=== PATIENT | male | born 1995 | race Two or more races ===

== ENCOUNTER 2017-03-30 04:31 | Emergency (ER) | payer MEDICAID ==
[~2017-03-30] VITALS: Ht 182.9 cm; Wt 108.9 kg
--- NOTE | 2017-03-30 04:57 | NUR ---
pt to room, concerned he might have diabetes. Pt c/o polyuria for approx 2 wks, dry mouth for a few days and numbness to left hand. Pt sts he looked up his symptoms online and is concerned he has diabetes. Pt appears anxious as in restless and unable to sit still. Resp even and unlabored. Resting in position of comfort for self. Awaiting further eval.
[2017-03-30 06:06] LABS: BASOPHILS % (AUTO) 0.2 % (0.0-2.0); EOSINOPHILS # (AUTO) 0.1 K/uL (0.0-0.7); EOSINOPHILS % (AUTO) 0.8 % (0.0-7.0); HEMATOCRIT 48.6 % (40-50); HEMOGLOBIN 16.3 G/DL (14.0-18.0); LYMPHOCYTES # (AUTO) 1.4 K/UL (0.8-4.8); LYMPHOCYTES % (AUTO) 13.5 % (20.5-51.5); MEAN CORPUSCULAR HEMOGLOBIN 29.7 UUG (27.0-31.0); MEAN CORPUSCULAR HGB CONC 34 g/dL (32.0-37.0); MEAN CORPUSCULAR VOLUME 88.5 FL (82.0-92.0); MONOCYTES # (AUTO) 0.6 K/UL (0.1-1.30); MONOCYTES % (AUTO) 5.6 % (0.0-11.0); NEUTROPHILS # (AUTO) 8.2 K/UL (1.8-8.9); NEUTROPHILS % (AUTO) 79.9 % (38.5-71.5); PLATELET COUNT (AUTO) 269 K/UL (150-450); RED BLOOD CELL COUNT(AUTO) 5.49 MIL/UL (4.7-6.1); WHITE BLOOD COUNT (AUTO) 10.3 K/UL (4.0-11.2)
[2017-03-30 06:14] LABS: BILIRUBIN,DIRECT 0.1 mg/dL (0.0-0.2); BILIRUBIN,TOTAL 0.3 mg/dL (0.2-1.0); CREATININE 0.9 mg/dL (0.6-1.3); POTASSIUM 4.1 mmol/L (3.5-5.1); TOTAL PROTEIN, SERUM 8.6 g/dL (6.4-8.2)
--- NOTE | 2017-03-30 06:33 | NUR ---
Patient discharged to home in stable conditon. Written and verbal after care instructions given. Patient verbalizes understanding of instructions.Ambulated from ER with stable gait, accompanied by significant other. All belongings with patient. no further complaint or concern noted.
[2017-03-30 06:38] VITALS: BP 139/80
== END 2017-03-30 06:39 | disposition home or self-care (01) ==
LOC: ER 04:38
DX: S66.912A Strain of unspecified muscle, fascia and tendon at wrist and hand level, left hand, initial encounter (principal); X58.XXXA Exposure to other specified factors, initial encounter; Y93.89 Activity, other specified; Y92.39 Other specified sports and athletic area as the place of occurrence of the external cause; Y99.9 Unspecified external cause status
CPT/HCPCS: 36415; 80048; 80076; 82550; 82962; 85025; 99284; A4663

== ENCOUNTER 2018-01-17 01:17 | Emergency (ER) | payer SELFPAY ==
[~2018-01-17] VITALS: Ht 182.9 cm; Wt 98.7 kg
--- NOTE | 2018-01-17 02:05 | NUR ---
ADMITTED TO ER -2A AMBULATORY FROM HOME C/O PAIN ON HIS LEFT RIB CAGE. DR. LINDQUIST SEEN & EVALUATED PT.
[2018-01-17 03:42] LABS: *BILIRUBIN,URIN NEGATIVE (NEGATIVE); *BLOOD, URINE NEGATIVE (NEGATIVE); *CLARITY,URINE CLEAR (CLEAR); *COLOR,URINE YELLOW (YELLOW); *KETONES,URINE 1+ (NEGATIVE); *PROTEIN,URINE NEGATIVE (NEGATIVE); *UROBILINOGEN,URINE 0.2 E.U./dl (NORMAL); LEUKOCYTE ESTERASE ,URINE NEGATIVE (NEGATIVE); NITRITE, URINE NEGATIVE (NEGATIVE); UGLUCOSE NEGATIVE (NEGATIVE)
[2018-01-17 03:59] LABS: BACTERIA,URINE NONE SEEN /HPF (NONE SEEN); RBC,URINE 0-3 /HPF (0-3); WBC,URINE 0-3 /HPF (0-3)
[2018-01-17 04:00] LABS: SQUAMOUS EPITHELIAL CELL,UR FEW /HPF (NONE SEEN)
--- NOTE | 2018-01-17 04:20 | NUR ---
DISCHARGED HOME AMBULATORY. DISCHARGE INSTRUCTIONS GIVEN & WAS UNDERSTOOD.
[2018-01-17 04:30] VITALS: BP 144/83
== END 2018-01-17 04:20 | disposition home or self-care (01) ==
LOC: ER 01:18
DX: R35.0 Frequency of micturition (principal); Z91.018 Allergy to other foods
CPT/HCPCS: A4663